=== PATIENT | male | born 1990 | race Caucasian/White ===

== ENCOUNTER 2024-01-14 08:31 | Emergency (ER) | payer OTHER, SELFPAY ==
--- NOTE | 2024-01-14 08:44 | ED.URI ---
HPI - URI/Sore Throat General Chief Complaint: Upper Respiratory Infection Stated Complaint: run down ,ear pain,sinus pressure Time Seen by Provider: 01/14/24 08:45 Source: patient Mode of arrival: ambulatory Limitations: no limitations History of Present Illness HPI Narrative: Cristi is a a 33-year-old male patient presenting to the clinic today with complaints fatigue, ear pain, cough, congestion, and sinus pressure x1.5 weeks. He reports he has taken [id number] Sudafed and Mucinex to help alleviate his symptoms. States that he is having a lot of sinus pressure over the maxilla. Very little nasal drainage coming out but is having a productive cough with some green phlegm. States he does have some shortness of breath on exertion times. History of asthma in the past and is a current smoker. MD elicited complaint: cough, nasal congestion and sinus pain Related Data Allergies Allergy/AdvReac Type Severity Reaction Status Date / Time No Known Allergies Allergy Verified 01/14/24 08:56 Review of Systems Review of Systems: Pertinent positives per HPI. Patient denies any fever, chills, rash, headache, visual changes, dizziness, chest pain, palpitations, nausea, vomiting, diarrhea, constipation, abdominal pain, or any urinary issues. ROYA Comments At the time of my signature, I reviewed and agree with the nursing past medical, surgical, social, and family history. There is no relevant family history pertinent to the patient complaint. Exam Narrative: General: Well-developed, well nourished, in no apparent distress Head: Normocephalic, atraumatic Eyes: Pupils equally round and reactive to light bilaterally, EOM intact, sclera and conjunctive clear, no discharge, lids normal Ears: TMs intact and clear, ear canals clear, no drainage, grossly hearing normal. Nose: Nares patent, clear nasal discharge, no inflammation, no sinus tenderness. Mouth: Oral pharynx without lesions or masses, good dentition, MMM. Neck: Supple, trachea midline, no enlargement of anterior or posterior cervical nodes, no thyroid masses or goiter palpable. Cardio: Regular rate and rhythm, s1 and s2 normal, no murmur appreciated. Resp: Clear to auscultation bilaterally, no rhonchi, rales, wheezing or rubs Course Course Emergency Course: Portions of this record may have been created with voice recognition software. Level of Care: Express Care Visit Vital Signs Vital signs: Vital signs reviewed MDM - URI/Sore Throat MDM Narrative Medical decision making narrative: At the time of visit patient is resting comfortably on the exam table. Patient appears to be nontoxic. Plan: I suspect patient has acute bacterial rhinosinusitis. Prescription for Augmentin and prednisone was sent to the pharmacy. Supportive measures were discussed with the patient and they voiced understanding discharge instructions and agrees to treatment plan. Return precautions reviewed Differential Diagnosis Differential diagnosis: Likely upper respiratory infection, otitis media, sinusitis, viral infection, bronchitis, influenza, pharyngitis and other (COVID) Discharge Plan Discharge Clinical Impression: Acute bacterial rhinosinusitis Patient Disposition: Home, Self-Care Condition: Stable Instructions: Antibiotic Form, Rhinosinusitis (ED) Additional Instructions: Take prescription medications only as prescribed-Augmentin and prednisone Increase fluids and stay well hydrated Tylenol/motrin for pain/fever Flonase and OTC antihistamines as directed Vicks vapor rub to open sinuses Sinus rinses for congestion Cepacol spray, cough drops, throat lozenges, warm tea with honey/lemon, gargle salt water to soothe throat BRAT diet for diarrhea Clear liquids x 24 hours then advance as tolerated for nausea/vomiting Go to the ED if you develop a worsening in your condition- high fever not controlled by Tylenol or Motrin, dehydration, weakness, let
[2024-01-14 08:47] VITALS: BP 150/99; PULSE 82; RESP 16; TEMP 36.6; O2SAT 100
== END 2024-01-14 09:00 | disposition home or self-care (01) ==
PROVIDERS: Emergency Provider Nurse Practitioner Family
DX: J01.90 Acute sinusitis, unspecified (principal)
CPT/HCPCS: 99213; G0463

== ENCOUNTER 2024-07-14 16:47 | Emergency (ER) | payer OTHER, SELFPAY ==
--- NOTE | ~2024-07-14 | XR_ITS ---
XR chest 2V Ordering provider: Samia Rush MD History: 33 years Male with . CP . Comparison: None. FINDINGS: MEDIASTINUM: The cardiac silhouette is not enlarged. LUNGS: No infiltrates, effusions or pneumothorax. OTHER: No free air under the diaphragm. IMPRESSION: No acute cardiopulmonary pathology. Reviewed, dictated and finalized at location A. ING MANAGER
[2024-07-14 16:48] VITALS: BP 180/96; PULSE 129; RESP 18; TEMP 36.3; O2SAT 100
--- NOTE | 2024-07-14 16:49 | ECG_ITS ---
Test Date: 2024-07-14 16:54:22 Measurements Intervals [place] Rate: 120 P: 58 [place]: 144 QRS: 31 QRSD: 91 T: 57 QT: 341 QTc: 484 Interpretive Statements SINUS TACHYCARDIA DELAYED PRECORDIAL R/S TRANSITION BASELINE WANDER- I, II, III, AVR, AVL, AVF, V1-V2 ABNORMAL ECG No previous ECG available for comparison Electronically Signed On 07-14-2024 18:23:45 GRIEF COUNSELLOR by Mike Aguilar D.O.
[2024-07-14 17:14] LABS: Basophils Percent Auto 0.4 % (0.2-1.2); Eosinophils Absolute Auto 0.2 K/mm3 (0-0.3); Eosinophils Percent Auto 2.1 % (0-4.4); Hematocrit 49.1 % (42.0-52.0); Hemoglobin 16.4 g/dL (14.0-18.0); Immature Granulocyte Absolute 0.02 K/mm3 (0.00-0.031); Immature Granulocyte Percent A 0.2 % (0-0.5); Lymphocytes Absolute Auto 2.11 K/mm3 (0.9-3.2); Lymphocytes Percent Auto 25.9 % (18.3-44.2); Mean Corpuscular HGB Conc 33.4 g/dl (32-36); Mean Corpuscular Hemoglobin 27.4 pg (26-34); Monocytes Absolute Auto 0.5 K/mm3 (0.1-0.6); Monocytes Percent Auto 5.9 % (2.6-8.5); Neutrophils Absolute Auto 5.3 K/mm3 (1.3-6.7); Neutrophils Percent Auto 65.5 % (45.5-73.1); Platelet Count Result 274 k/mm3 (150-375); Red Blood Count 5.99 M/mm3 (4.6-6.20); Red Cell Distribution Width 14.2 % (11.5-14.5); White Blood Count 8.1 K/mm3 (4.5-10.0)
[2024-07-14 17:23] LABS: Alanine Aminotransferase 16 U/L (6-50); Albumin Level 4.9 g/dL (3.5-5.1); Alkaline Phosphatase 75 U/L (38-126); Anion Gap 10 mmol/L (4-12); Aspartate Amino Transferase 21 U/L (17-59); Bilirubin,Total 0.8 mg/dL (0.2-1.3); Blood Urea Nitrogen 12 mg/dL (9-20); Calcium 9.7 mg/dL (8.4-10.2); Carbon Dioxide 26 mmol/L (22-30); Chloride 105 mmol/L (98-107); Estimated CRCL calculation 143 ml/min; Estimated Glomerular Filt Rate > 60; Glucose 101 mg/dL (65-110); Lipase 85 U/L (23-300); Potassium 3.3 mmol/L (3.4-5.0); Sodium 141 mmol/L (137-145)
[2024-07-14 17:27] VITALS: O2SAT 98
[2024-07-14 17:33] VITALS: BP 142/92; PULSE 84; RESP 17; TEMP 36.7; O2SAT 98
[2024-07-14 17:33] LABS: Prothrombin Time 13.2 Seconds (11.1-14.7)
[2024-07-14 17:35] LABS: Troponin I < 0.012 ng/mL (0.000-0.034)
[2024-07-14] MEDS: POTASSIUM CHLORIDE 20 MEQ ER TABLET 40 MEQ PO (18:19)
--- NOTE | 2024-07-14 18:24 | ED.CHESTPAIN ---
HPI - Chest Pain General Chief Complaint: Chest Pain Stated Complaint: CP Time Seen by Provider: 07/14/24 18:13 Source: patient Mode of arrival: ambulatory Limitations: no limitations History of Present Illness HPI narrative: This is a 33-year-old male that presents to the emergency department for left sided chest pain. Ongoing intermittently over the last couple of weeks. The pain radiates into his neck and arm. Worse with certain movements. He has also been experiencing some nausea and vomiting. He was unsure if maybe his symptoms are due to anxiety. Does report some shortness of breath and recently recovering from COVID. Denies fever, cough, lower extremity edema. Related Data Allergies Allergy/AdvReac Type Severity Reaction Status Date / Time No Known Allergies Allergy Verified 01/14/24 08:56 Review of Systems Review of Systems: CONSTITUTIONAL: Denies fever CARDIOVASCULAR: Reports chest pain. Denies edema. RESPIRATORY: Reports dyspnea. Denies cough All systems reviewed & are unremarkable except as noted in HPI and below PMFSH Past Medical History Medical History (Updated 07/14/24 @ 21:44 by Melissa Eastman PA-C) No active medical problems Social History Social History (Updated 07/14/24 @ 18:26 by Melissa Eastman PA-C) Smoking status: Former smoker Exam Narrative: GENERAL: Well-appearing, well-nourished, and in no acute distress. HEAD: Normocephalic, atraumatic. EYES: EOMI. NECK: Supple. No JVD CHEST: Clear to auscultation. No respiratory distress. No wheezes rales or rhonchi HEART: Regular rate and rhythm. No murmur heard. Normal peripheral pulses. EXTREMITIES: Normal range of motion. No edema. SKIN: Warm, dry, no rash. NEURO: No focal deficits. Alert and oriented x3. PSYCH: Normal mood and affect Course Course Emergency Course: patient updated on workup and agrees with plan of care Vital Signs Vital signs: Vital Signs Temperature 97.4 F L 07/14/24 16:48 Pulse Rate 129 H 07/14/24 16:48 Respiratory Rate 18 07/14/24 16:48 Blood Pressure 180/96 H 07/14/24 16:48 Pulse Oximetry 100 07/14/24 16:48 Oxygen Delivery Room Air 07/14/24 16:48 Temperature 98.0 F 07/14/24 17:33 Pulse Rate 84 07/14/24 17:33 Respiratory Rate 17 07/14/24 17:33 Blood Pressure 142/92 H 07/14/24 17:33 Pulse Oximetry 98 07/14/24 17:33 Oxygen Delivery Room Air 07/14/24 17:27 MDM - Chest Pain MDM Narrative Medical decision making narrative: Patient presents to the ER for chest pain. Ongoing over the last couple of weeks. Tachycardic and hypertensive upon arrival. This improved without intervention. CBC without concerning findings. Metabolic panel with mild hypokalemia, patient's potassium was replaced. EKG without acute ST changes and baseline and 3 hour troponin are negative. D-dimer is not elevated. Chest x-ray without acute cardiopulmonary abnormality. His heart score is 1. Patient was updated on workup and agrees with care. Will be given follow-up with primary provider. He was given warnings to return to the ER Differential Diagnosis Differential diagnosis: Likely stable angina, atypical chest pain, costochondritis and other (pneumonia, anxiety, muscle strain) Lab Data Attestation: I reviewed the patient's lab results. 07/14/24 17:04 07/14/24 17:04 Labs: Lab Results 07/14/24 07/14/24 Range/Units 17:04 19:53 WBC 8.1 (4.5-10.0) K/mm3 RBC 5.99 (4.6-6.20) M/mm3 Hgb 16.4 (14.0-18.0) g/dL Hct 49.1 (42.0-52.0) % MCV 82.0 (80-100) fl MCH 27.4 (26-34) pg MCHC 33.4 (32-36) g/dl RDW 14.2 (11.5-14.5) % Plt Count 274 (150-375) k/mm3 MPV 10.0 (7.4-10.4) fl Immature Gran % (Auto) 0.2 (0-0.5) % Neut % (Auto) 65.5 (45.5-73.1) % Lymph % (Auto) 25.9 (18.3-44.2) % [place] % (Auto) 5.9 (2.6-8.5) % Eos % (Auto) 2.1 (0-4.4) % Baso % (Auto) 0.4 (0.2-1.2) % Lymph # (Auto) 2.11 (0.9-3.2) K/mm3 [place] # (Auto) 0.5 (0.1-0.6) K/mm3 Eos # (Auto) 0.2 (0-0.3) K/mm3 Baso # (Auto) 0.0 (0.0-0.1) K/mm3 Abs Immat Gran (auto) 0.02 (0.00-0.031) K/mm3 Absolute Neuts (auto) 5.3 (1.3-6.7) K/mm3 Absolute Nucleated RBC 0.000 (0.0-0.012) K/mm3 Nucleated RBC % 0.0 (0.0-0.2) % PT 13.2 (11.1-14.7) Seconds INR 1.0 APTT 31.0 (22.3-36.8) Seconds D-Dimer < 0.27 (<0.48) ug/mL Sodium 141 (137-145) mmol/L Potassium 3.3 L (3.4-5.0) mmol/L Chloride 105 (98-107) mmol/L Carbon Dioxide 26 (22-30) mmol/L Anion Gap 10 (4-12) mmol/L BUN 12 (9-20) mg/dL Creatinine 0.80 (0.7-1.3) mg/dL Estim Creat Clear Calc 143 ml/min Estimated GFR > 60 (59 - ) Glucose 101 (65-110) mg/dL Calcium 9.7 (8.4-10.2) mg/dL Magnesium 2.0 (1.6-2.3) mg/dL Total Bilirubin 0.8 (0.2-1.3) mg/dL AST 21 (17-59) U/L ALT 16 (6-50) U/L Alkaline Phosphatase 75 (38-126) U/L Troponin I < 0.012 < 0.012 (0.000-0.034) ng/mL Total Protein 9.0 H (6.3-8.2) g/dL Albumin 4.9 (3.5-5.1) g/dL Lipase 85 (23-300) U/L Imaging Data Radiologist's impression: ITS Impressions Chest X-Ray 07/14/24 17:28 IMPRESSION: No acute cardiopulmonary pathology. ECG Data EKG #1: ECG completion date: 07/14/24 EKG Interpretation: normal rate, sinus rhythm, no ST changes and normal QT Critical Care Time Critical Care Time Critical Care Time: No Discharge Plan Discharge Clinical Impression: Atypical chest pain, Hypokalemia Patient Disposition: Home, Self-Care Condition: Stable Instructions: Chest Pain (ED), Hypokalemia (ED) Additional Instructions: Return to the Emergency Department if you experience chest pain, shortness of breath, swelling in your legs, or any other symptoms that are concerning to you Follow up with primary care doctor Prescriptions: No Action prednisone 20 mg tablet 40 mg PO DAILY 5 Days Qty: 10 0RF amoxicillin-pot clavulanate 875-125 mg tablet 1 tablet PO Q12H 10 Days Qty: 20 0RF Follow-up/Referrals: PHYSICIAN,PROCESS TECHNICIAN [Primary Care Provider] - Zachary Anand MD [Physician] - Quality HEART score for chest pain patients History: slightly suspicious ECG: normal Age: < or = to 45 years Risk factors: 1 or 2 risk factors Troponin: < or = to 1x normal limit Heart score: 1
[2024-07-14 19:20] LABS: D Dimer < 0.27 ug/mL (<0.48)
--- NOTE | 2024-07-14 19:44 | ECG_ITS ---
Test Date: 2024-07-14 19:49:33 Measurements Intervals [place] Rate: 72 P: 45 [place]: 158 QRS: 25 QRSD: 91 T: 38 QT: 372 QTc: 410 Interpretive Statements SINUS RHYTHM WITH SINUS ARRHYTHMIA NORMAL ECG Compared to ECG 07/14/2024 16:54:22 HEART RATE HAS DECREASED Electronically Signed On 07-15-2024 07:20:05 TRAFFIC DIVISION COMMANDING OFFICER by Mike Aguilar D.O.
[2024-07-14 20:23] LABS: Troponin I < 0.012 ng/mL (0.000-0.034)
== END 2024-07-14 22:15 | disposition home or self-care (01) ==
PROVIDERS: Emergency Medicine; Emergency Provider Physician Assistant
DX: R07.89 Other chest pain (principal); E87.6 Hypokalemia; Z87.891 Personal history of nicotine dependence; R00.0 Tachycardia, unspecified
CPT/HCPCS: 36415; 71046; 80053; 83690; 83735; 84484; 85025; 85380; 85610; 85730; 93005; 99284; A9270

== ENCOUNTER 2024-07-19 09:41 | Emergency (ER) | payer OTHER, SELFPAY ==
[2024-07-19] VITALS (12 sets, daily range): BP systolic 126–179; BP diastolic 74–109; PULSE 71–108; RESP 16–20; TEMP 36.4–36.6; O2SAT 97–100
--- NOTE | ~2024-07-19 | XR_ITS ---
EXAMINATION: XR chest 2V DATE: 07/19/2024 10:39 INDICATION: Chest pain TECHNIQUE: PA and lateral views of the chest were obtained. COMPARISON: Chest radiograph dated 07/14/2024 FINDINGS: The lungs remain clear with no focal airspace opacities, pulmonary edema, pleural effusion or pneumot horax. The cardiomediastinal silhouette is normal. Visualized bones and soft tissues are unremarkable . IMPRESSION: 1. No acute cardiopulmonary disease. Reviewed, dictated and finalized at location A. IANCE WORKER
--- NOTE | 2024-07-19 09:43 | ECG_ITS ---
Test Date: 2024-07-19 09:48:39 Measurements Intervals [place] Rate: 103 P: 63 [place]: 144 QRS: 11 QRSD: 82 T: 65 QT: 310 QTc: 407 Interpretive Statements SINUS TACHYCARDIA ABNORMAL RHYTHM ECG Compared to ECG 07/14/2024 19:49:33 Sinus rhythm no longer present Sinus arrhythmia no longer present Electronically Signed On 07-19-2024 14:27:32 MASTER FIRE CONTROL TECHNICIAN by Tino Rod M.D.
[2024-07-19 09:56] LABS: Basophils Absolute Auto 0.1 K/mm3 (0.0-0.1); Basophils Percent Auto 0.7 % (0.2-1.2); Eosinophils Absolute Auto 0.3 K/mm3 (0-0.3); Eosinophils Percent Auto 3.9 % (0-4.4); Hematocrit 50.5 % (42.0-52.0); Hemoglobin 16.5 g/dL (14.0-18.0); Immature Granulocyte Absolute 0.02 K/mm3 (0.00-0.031); Immature Granulocyte Percent A 0.3 % (0-0.5); Lymphocytes Absolute Auto 1.99 K/mm3 (0.9-3.2); Lymphocytes Percent Auto 26.5 % (18.3-44.2); Mean Corpuscular HGB Conc 32.7 g/dl (32-36); Mean Corpuscular Hemoglobin 27.1 pg (26-34); Mean Corpuscular Volume 82.9 fl (80-100); Mean Platelet Volume 9.9 fl (7.4-10.4); Monocytes Absolute Auto 0.5 K/mm3 (0.1-0.6); Monocytes Percent Auto 6.4 % (2.6-8.5); Neutrophils Absolute Auto 4.7 K/mm3 (1.3-6.7); Neutrophils Percent Auto 62.2 % (45.5-73.1); Platelet Count Result 290 k/mm3 (150-375); Red Blood Count 6.09 M/mm3 (4.6-6.20); Red Cell Distribution Width 14.5 % (11.5-14.5); White Blood Count 7.5 K/mm3 (4.5-10.0)
[2024-07-19 10:08] LABS: Alanine Aminotransferase 22 U/L (6-50); Albumin Level 5.1 g/dL (3.5-5.1); Alkaline Phosphatase 72 U/L (38-126); Anion Gap 8 mmol/L (4-12); Aspartate Amino Transferase 23 U/L (17-59); Bilirubin,Total 0.8 mg/dL (0.2-1.3); Blood Urea Nitrogen 12 mg/dL (9-20); Calcium 9.7 mg/dL (8.4-10.2); Carbon Dioxide 28 mmol/L (22-30); Chloride 105 mmol/L (98-107); Estimated CRCL calculation 141 ml/min; Estimated Glomerular Filt Rate > 60; Glucose 107 mg/dL (65-110); Lipase 129 U/L (23-300); Potassium 3.5 mmol/L (3.4-5.0); Sodium 141 mmol/L (137-145)
[2024-07-19 10:17] LABS: Partial Thromboplastin Time 31.1 Seconds (22.3-36.8)
[2024-07-19 10:20] LABS: Troponin I < 0.012 ng/mL (0.000-0.034)
--- NOTE | 2024-07-19 13:52 | ED.CHESTPAIN ---
HPI - Chest Pain General Chief Complaint: Chest Pain Stated Complaint: chest pain, elevated BP, dizziness Time Seen by Provider: 07/19/24 12:01 History of Present Illness HPI narrative: 33-year-old male presenting with chest pain. States that for the last week or so he has had pretty persistent left-sided chest pain that goes into his neck, his arm, his back. It is worse with movements and standing up. No shortness of breath. Associated with elevated blood pressures that he has been checking at home. Also states that for the last 8 months or so he has had daily nausea with vomiting. He also has lightheadedness when he stands. He was seen here last week for chest pain and is able to go home but the symptoms persisted so he wanted to get checked out again. He has an appointment with primary care in 2 days. Related Data Allergies Allergy/AdvReac Type Severity Reaction Status Date / Time No Known Allergies Allergy Verified 01/14/24 08:56 Review of Systems Review of Systems: All systems reviewed & are unremarkable except as noted in HPI and below PMFSH Past Medical History Medical History No active medical problems Social History Social History Smoking status: Former smoker Exam Narrative: GENERAL: Well-appearing, well-nourished, and in no acute distress. HEAD: Normocephalic, atraumatic. EYES: PERRLA and EOMI. ENT: Mucous membranes moist. NECK: Supple. CHEST: Clear to auscultation. No respiratory distress. HEART: Regular rate and rhythm ABDOMEN: Soft, nontender, nondistended EXTREMITIES: Normal range of motion SKIN: Warm, dry, no rash. NEURO: Alert and oriented x3. PSYCH: Normal mood and affect. Course Vital Signs Vital signs: Vital Signs Temperature 97.9 F 07/19/24 09:42 Pulse Rate 100 07/19/24 09:42 Respiratory Rate 18 07/19/24 09:42 Blood Pressure 179/109 H 07/19/24 09:42 Pulse Oximetry 100 07/19/24 09:42 Temperature 97.9 F 07/19/24 15:00 Pulse Rate 96 07/19/24 15:00 Respiratory Rate 18 07/19/24 15:00 Blood Pressure 138/94 H 07/19/24 15:00 Pulse Oximetry 100 07/19/24 15:00 Oxygen Delivery Room Air 07/19/24 10:30 MDM - Chest Pain MDM Narrative Medical decision making narrative: 33-year-old male presenting with chest pain. Patient initially hypertensive, otherwise vitals within normal limits. Exam remarkable for the above. EKG per my interpretation shows sinus tachycardia, no ST elevations or depressions. Orthostatic vital signs are negative. Chest x-ray without acute abnormalities. Blood work without acute abnormalities. Troponins undetected x2. Patient given a dose of Pepcid as he is concerned he may have an ulcer. Patient then left prior to my re-evaluation. States that he will just follow up with PCP in 2 days as scheduled. Differential Diagnosis Differential diagnosis: Likely atypical chest pain, costochondritis, chest pain and other (Anxiety, GERD) Medical Records Data Attestation: I reviewed the patient's medical records. Lab Data Attestation: I reviewed the patient's lab results. 07/19/24 09:51 07/19/24 09:51 Labs: Lab Results 07/19/24 07/19/24 Range/Units 09:51 13:34 WBC 7.5 (4.5-10.0) K/mm3 RBC 6.09 (4.6-6.20) M/mm3 Hgb 16.5 (14.0-18.0) g/dL Hct 50.5 (42.0-52.0) % MCV 82.9 (80-100) fl MCH 27.1 (26-34) pg MCHC 32.7 (32-36) g/dl RDW 14.5 (11.5-14.5) % Plt Count 290 (150-375) k/mm3 MPV 9.9 (7.4-10.4) fl Immature Gran % (Auto) 0.3 (0-0.5) % Neut % (Auto) 62.2 (45.5-73.1) % Lymph % (Auto) 26.5 (18.3-44.2) % [place] % (Auto) 6.4 (2.6-8.5) % Eos % (Auto) 3.9 (0-4.4) % Baso % (Auto) 0.7 (0.2-1.2) % Lymph # (Auto) 1.99 (0.9-3.2) K/mm3 [place] # (Auto) 0.5 (0.1-0.6) K/mm3 Eos # (Auto) 0.3 (0-0.3) K/mm3 Baso # (Auto) 0.1 (0.0-0.1) K/mm3 Abs Immat Gran (auto) 0.02 (0.00-0.031) K/mm3 Absolute Neuts (auto) 4.7 (1.3-6.7) K/mm3 Absolute Nucleated RBC 0.000 (0.0-0.012) K/mm3 Nucleated RBC % 0.0 (0.0-0.2) % PT 14.0 (11.1-14.7) Seconds INR 1.0 APTT 31.1 (22.3-36.8) Seconds Sodium 141 (137-145) mmol/L Potassium 3.5 (3.4-5.0) mmol/L Chloride 105 (98-107) mmol/L Carbon Dioxide 28 (22-30) mmol/L Anion Gap 8 (4-12) mmol/L BUN 12 (9-20) mg/dL Creatinine 0.80 (0.7-1.3) mg/dL Estim Creat Clear Calc 141 ml/min Estimated GFR > 60 (59 - ) Glucose 107 (65-110) mg/dL Calcium 9.7 (8.4-10.2) mg/dL Total Bilirubin 0.8 (0.2-1.3) mg/dL AST 23 (17-59) U/L ALT 22 (6-50) U/L Alkaline Phosphatase 72 (38-126) U/L Troponin I < 0.012 < 0.012 (0.000-0.034) ng/mL Total Protein 9.0 H (6.3-8.2) g/dL Albumin 5.1 (3.5-5.1) g/dL Lipase 129 (23-300) U/L Imaging Data Radiologist's impression: ITS Impressions Chest X-Ray 07/19/24 10:47 IMPRESSION: 1. No acute cardiopulmonary disease. Critical Care Time Critical Care Time Critical Care Time: No Discharge Plan Discharge Clinical Impression: Atypical chest pain, Nausea Patient Disposition: Home, Self-Care Condition: Stable Instructions: Antibiotic Form Prescriptions: No Action prednisone 20 mg tablet 40 mg PO DAILY 5 Days Qty: 10 0RF amoxicillin-pot clavulanate 875-125 mg tablet 1 tablet PO Q12H 10 Days Qty: 20 0RF Follow-up/Referrals: UNKNOWN,DOCTOR [Primary Care Provider] -
[2024-07-19 14:06] LABS: Troponin I < 0.012 ng/mL (0.000-0.034)
[2024-07-19] MEDS: FAMOTIDINE 20 MG TABLET PO (14:23)
== END 2024-07-19 15:30 | disposition home or self-care (01) ==
PROVIDERS: Student in an Organized Health Care Education/Training Program; Emergency Provider Emergency Medicine
DX: R07.89 Other chest pain (principal); R11.0 Nausea; Z87.891 Personal history of nicotine dependence
CPT/HCPCS: 36415; 71046; 80053; 83690; 84484; 85025; 85610; 85730; 93005; 99284; A9270